=== PATIENT | male | born 1970 | race Caucasian/White ===

== ENCOUNTER 2016-07-21 12:47 | Day surgery (SDC) | payer OTHER ==
[2016-07-21] MEDS ORDERED: Lidocaine Topical 2% 30 mL Jelly ONE (13:13)
== END 2016-07-21 23:59 | disposition home or self-care (01) ==
LOC: END 12:47
PROVIDERS: ATTEND Internal Medicine Gastroenterology
DX: R11.0 Nausea (principal)